=== PATIENT | female | born 1995 | race Caucasian/White ===

== ENCOUNTER → 2024-06-17 | Outpatient (CLI) | payer OTHER ==
[2024-06-19 19:14] LABS: C. TRACHOMATIS BY TMA,THINPREP Negative (Negative); N. GONORRHOEAE BY TMA,THINPREP Negative (Negative); SPECIMEN SOURCE Cervical/Vag
== END ==
LOC: LAB 15:26 → LAB SHORT 15:26
PROVIDERS: Family Medicine
DX: Z01.419 Encounter for gynecological examination (general) (routine) without abnormal findings (principal); Z11.3 Encounter for screening for infections with a predominantly sexual mode of transmission
CPT/HCPCS: 87491; 87591; G0123

== ENCOUNTER 2024-12-21 10:28 | Emergency (ER) | payer OTHER ==
[~2024-12-21] VITALS: Ht 162.6 cm; Wt 92.5 kg
[2024-12-21] MEDS ORDERED: PERCOCET 10-321 EA13 PO (11:26)
[2024-12-21] MEDS ORDERED: AMOCLA875 PO (11:26)
[2024-12-21] MEDS ORDERED: OxyCODONE 10/Acetamin 325 TABLET PO ONE (11:30)
== END 2024-12-21 11:47 | disposition home or self-care (01) ==
LOC: ER 10:28
DX: K08.89 Other specified disorders of teeth and supporting structures (principal)
CPT/HCPCS: A9270